=== PATIENT | male | born 1940 | race Two or more races ===

== ENCOUNTER 2024-11-06 04:29 | Inpatient (IN) | payer OTHER, MEDICAID ==
[~2024-11-06] VITALS: Ht 175.3 cm; Wt 67.3 kg
--- NOTE | 2024-11-06 06:34 | ED.PDOC ---
Eye-HPI HPI Comments 84 y/o M, presents to the ED for CC of dizziness. Patient states, he has been experiencing left ear impaction with associated hearing loss x1day; endorses following commencement of symptoms to begin feeling dizzy. Patient comments, "I feel as if the room is spinning around me". Patient further reports, cold symptoms and chills in association. Patient denies nausea, vomiting, diarrhea, fever, or sore-throat. No other symptoms or modifying factors present at this time. Chief Complaint: Dizziness Time Seen by MD: 06:15 Reviewed Notes: Nurses Notes, Medications, Allergies Allergies: Coded Allergies: NO KNOWN ALLERGIES (Unverified , 11/06/24) Information Source: Patient Mode of Arrival: Wheelchair Timing: Days Duration: Since onset Prehospital treatment: None Quality: Hearing loss Lids: Normal Conjunctiva: Normal Cornea: Normal Pupils: Normal EOM: Normal Fundus: Normal Slit lamp exam: Normal Anterior chamber: Normal Mouth: Normal ENT Ear Exam: Normal Nose: Normal Sinuses: Normal Oropharynx: Normal Onset: Spontaneous Throat Exposed to: None History of: None Modifying factors: Nothing Associated signs and symptoms: Chills Past Medical History PAST MEDICAL HISTORY: Denies Surgical History: Denies all surgeries Family History Family History: Unknown Social History Smoker: Non-Smoker Alcohol: Denies ETOH Use Drugs: Denies Drug Use Lives In: Home Constitutional: denies: chills, diaphoresis, fatigue, fever, malaise, sweats, weakness, others EENTM: reports: others (left ear plugged); denies: blurred vision, double vision, ear bleeding, ear discharge, ear drainage, ear pain, ear ringing, eye pain, eye redness, hearing loss, mouth pain, mouth swelling, nasal discharge, nose bleeding, nose congestion, nose pain, photophobia, tearing, throat pain, throat swelling, voice changes Respiratory: denies: cough, hemoptysis, orthopnea, SOB at rest, shortness of breath, SOB with excertion, stridor, wheezing, others Cardiovascular: denies: chest pain, dizzy spells, diaphoresis, Dyspnea on exertion, edema, irregular heart beat, left arm pain, lightheadedness, palpitations, PND, syncope, others Gastrointestinal: denies: abdomen distended, abdominal pain, blood streaked bowels, constipated, diarrhea, dysphagia, difficulty swallowing, hematemesis, melena, nausea, poor appetite, poor fluid intake, rectal bleeding, rectal pain, vomiting, others Genitourinary: denies: burning, dysuria, flank pain, frequency, hematuria, incontinence, penile discharge, penile sore, pain, testicle pain, testicle swelling, urgency, others Neurological: denies: dizziness, fainting, headache, left sided numbness, left sided weakness, numbness, paresthesia, pre-existing deficit, right sided numbne ss, right sided weakness, seizure, speech problems, tingling, tremors, weakness, others Musculoskeletal: denies: back pain, gout, joint pain, joint swelling, muscle pain, muscle stiffness, neck pain, others Integumetry: denies: bruises, change in color, change in hair/nails, dryness, laceration, lesions, lumps, rash, wounds, others Allergic/Immunocompromised: denies: Difficulty Healing, Frequent Infections, Hives, Itching, others Hematologic/Lymphatic: denies: anemia, blood clots, easy bleeding, easy bruising, swollen glands, others Endocrine: denies: excessive hunger, excessive sweating, excessive thirst, excessive urination, flushing, intolerance to cold, intolerance to heat, unexplained weight gain, unexplained weight loss, others Psychiatric: denies: anxiety, bipolar disorder, depression, hopeless, panic disorder, schizophrenia, sleepless, suicidal, others All Other Systems: Reviewed and Negative Physical Exam General Appearance: No Apparent Distress, Normal HEENT: Normal ENT Inspection, Pharynx Normal Neck: Full Range of Motion, Non-Tender, Normal, Normal Inspection Respiratory: Chest Non-Tender, Lungs Clear, No Accessory Muscle Use, No Respiratory Distress, Normal Breath Sounds Cardiovascular: No Edema, No Murmur, No Gallop, Normal Peripheral Pulses, Regular Rate/Rhythm Breast Exam: Deferred Gastrointestinal: No Organomegaly, Non Tender, No Pulsatile Mass, Normal Bowel Sounds, Soft Genitalia: Deferred Pelvic: Deferred Rectal: Deferred Extremities: No calf tenderness, Normal capillary refill, Normal inspection, Normal range of motion, Non-tender, No pedal edema Musculoskeletal : Apperance: Normal Neurologic: Alert, salad maker II-XII nml as Tested, No Motor Deficits, Normal Affect, Normal Mood, No Sensory Deficits Cerebellar Function: Normal Reflexes: Normal Skin: Dry, Normal Color, Warm Lymphatic: No Adenopathy Was a procedure done? Was a procedure done?: No EENT DIFF Eye: N/A Ear: Otitis Media, Sinusitis X-Ray, Labs, Meds, VS Vital Signs Date Time Temp Pulse Resp B/P (MAP) Pulse Ox O2 Delivery O2 Flow Rate FiO2 11/06/24 04:31 99.0 79 14 119/81 97 99.0 Lab Test 11/06/24 06:43 Range/Units White Blood Count 4.9 4.4-10.8 10^3/uL Red Blood Count 4.00 L 4.5-5.90 10^6/uL Hemoglobin 13.1 L 13.5-17.5 g/dL Hematocrit 37.8 L 41.0-53.0 % Mean Corpuscular Volume 94.6 80.0-100.0 fL Mean Corpuscular Hemoglobin 32.7 H 28.0-32.0 pg Mean Corpuscular Hemoglobin Concent 34.6 32.0-36.0 g/dL Red Cell Distribution Width 14.7 H 11.8-14.3 % Platelet Count 150 140-450 10^3/uL Mean Platelet Volume 7.9 6.9-10.8 fL Neutrophils (%) (Auto) 86.8 H 37.0-80.0 % Lymphocytes (%) (Auto) 7.0 L 10.0-50.0 % Monocytes (%) (Auto) 4.7 0.0-12.0 % Eosinophils (%) (Auto) 1.4 0.0-7.0 % Basophils (%) (Auto) 0.1 0.0-2.0 % Neutrophils # (Auto) 4.2 1.6-8.6 10 ^3/uL Lymphocytes # (Auto) 0.3 L 0.4-5.4 10 ^3/uL Monocytes # (Auto) 0.2 0-1.3 10 ^3/uL Eosinophils # (Auto) 0.1 0-0.8 10 ^3/uL Basophils # (Auto) 0 0-0.2 10 ^3/uL Nucleated Red Blood Cells 0.0 % Sodium Level 134 L 136-145 mmol/L Potassium Level 4.3 3.5-5.1 mmol/L Chloride Level 100 98-107 mmol/L Carbon Dioxide Level 27 20-31 mmol/L Anion Gap 7 5-15 Blood Urea Nitrogen 10 9-23 mg/dL Creatinine 0.74 0.700-1.30 mg/dL Glomerular Filtration Rate Calc 90 >90 mL/min BUN/Creatinine Ratio 13.5 10.0-20.0 Serum Glucose 138 H 74-106 mg/dL Calcium Level 9.4 8.7-10.4 mg/dL Troponin I High Sensitivity 258 *H </=54 ng/L Time of 1ST Reevaluation: 06:45 Reevaluation 1ST: Unchanged Patient Education/Counseling: Diagnosis, Treatment Family Education/Counseling: No Family Present SEPSIS Sepsis Screen Date sepsis recognized/suspect: Nov 06, 2024 Time Sepsis recognized/suspect: 435 Recent Procedure: No On Antibiotic Therapy: No Respiratory Rate >20: No Heart Rate >90: No Temp<36 C (96.8 F) or >38.3 C: No SBP <90 or MAP <65 mmHG: No New Acute Mental Status Change: No Is the patient on CPAP, BIPAP,: No Physician Orders Urinalysis (11/06/24 06:26) Troponin-I Hs (11/06/24 07:26) Troponin-I Hs (11/06/24 09:26) Chest Portable (11/06/24 07:28) Head Without Contrast (11/06/24 07:28) Electrocardigram (11/06/24 07:28) Electrocardigram (11/06/24 08:28) Electrocardigram (11/06/24 10:28) Vital Signs Date Time Temp Pulse Resp B/P (MAP) Pulse Ox O2 Delivery O2 Flow Rate FiO2 11/06/24 04:31 99.0 79 14 119/81 97 99.0 Laboratory Tests Test 11/06/24 06:43 White Blood Count 4.9 10^3/uL (4.4-10.8) Departure 1 Departure Time of Disposition: 08:33 (Patient with worsening dizziness found to have elevated tropining. EKG and ct brain and cxr is benign. ) Impression: Primary Impression: Dizziness Additional Impressions: Elevated troponin Weakness Disposition: 09 ADMITTED INPATIENT Admit to: Tele Condition: Guarded Critical Care Note Critical Care Time?: No Stability Stability form required: No Heart Score Heart Score: Heart Score Response (Comments) Value History N/A 0 EKG Repolarization Disturb 1 Age >65 2 Risk Factors >3 or Hx ASHD 2 Troponin >3 x's Normal limit 2 Total 7 I personally scribed for KEN WALKER MD ([email or web address]) on 11/06/24 at 06:34. Electronically submitted by Bella Verde [email or web address]). KEN WALKER MD Nov 06, 2024 06:34
[2024-11-06 06:54] LABS: Hematocrit 37.8 % (41.0-53.0); Hemoglobin 13.1 g/dL (13.5-17.5); Mean Corpuscular Hemoglobin 32.7 pg (28.0-32.0); Mean Corpuscular Volume 94.6 fL (80.0-100.0); Nucleated Red Blood Cells % 0.0 %
[2024-11-06 07:04] LABS: Chloride 100 mmol/L (98-107); Potassium 4.3 mmol/L (3.5-5.1)
[2024-11-06 07:05] LABS: Anion Gap 7 (5-15); Calcium 9.4 mg/dL (8.7-10.4); Carbon Dioxide 27 mmol/L (20-31)
[2024-11-06 07:10] LABS: BUN/Creatinine Ratio 13.5 (10.0-20.0); Blood Urea Nitrogen 10 mg/dL (9-23)
[2024-11-06 07:11] LABS: Glucose 138 mg/dL (74-106); Sodium 134 mmol/L (136-145)
--- NOTE | 2024-11-06 08:08 | DVH ---
EXAM: CT HEAD WITHOUT CONTRAST INDICATION: weakness TECHNIQUE: CT of the head without intravenous contrast. Coronal and sagittal reformatted images are s ubmitted. Radiation Dose : 1. Head: CT Dose: CTDI volume is 52.5 mGy. Dose-length product is 1032.95 mGy*cm The dose indicators for CT are the volume Computed Tomography (CT) Dose Index (CTDIvol) and the Dose Length Product (DLP), and are measured in units of mGy and mGy-cm, respectively. These indicators are not patient dose, but values generated from the CT scanner acquisition factors. The report includes radiation exposure data for exposures received during this examination. All CT scans at this medical facility are performed using dose modulation techniques as appropriate to a performed exam including the following: Automated exposure control was utilized; adjustment of the MA and/or KV according to patient size; and use of iterative reconstruction technique. COMPARISON: None FINDINGS: There is no evidence of acute intracranial hemorrhage, extra-axial collection, mass effect, midline s hift, herniation or hydrocephalus. There is encephalomalacia in the left occipital lobe. The ventricles, sulci and cisterns are age appropriate. The gardiner-white differentiation is intact. The visualized paranasal sinuses and mastoid air cells are clear. No depressed calvarial fracture. The surrounding soft tissues are unremarkable. IMPRESSION: 1. No evidence of acute intracranial abnormality.
--- NOTE | 2024-11-06 08:16 | DVH ---
INDICATION: weakness TECHNIQUE: Frontal view of the chest. COMPARISON: None FINDINGS: Left-sided pacemaker. Median sternotomy. The heart and mediastinal contours are grossly unremarkable. There is no evidence of pleural disease. The lungs are clear. The bony structures of the chest a re intact without fracture. IMPRESSION: 1. No evidence of acute disease.
--- NOTE | 2024-11-06 14:29 | DVHHP2 ---
History of Present Illness Reason for Visit: Dizziness History of Present Illness 84 y/o M, presents to the ED for CC of dizziness. Patient states, he has been experiencing left ear impaction with associated hearing loss x1day; endorses following commencement of symptoms to begin feeling dizzy. Patient comments, "I feel as if the room is spinning around me". Patient further reports, cold symptoms and chills in association. Patient denies nausea, vomiting, diarrhea, fever, or sore-throat. No other symptoms or modifying factors present at this time. He is evaluated in the ER on noted to have elevated troponin. Therefore he has been brought into the hospital for further evaluation of his elevated troponins and dizziness complaints. Past Medical History Denies any high blood pressure diabetes or high cholesterol. Past Surgical History: None Family History: Hypertension Smoke: No ALCOHOL: occassional Lives: with Family Review of Systems Review of Systems No fevers chills or sweats. No headache. Feels fullness in his ear and loss of hearing in the left ear for a day. Other review of systems reviewed normal Allergies: Coded Allergies: NO KNOWN ALLERGIES (Unverified , 11/06/24) Medications Current Medications Medications Dose Ordered Sig/Haider Route Start Time Stop Time Status Last Admin Dose Admin Nitroglycerin 0.4 mg Q5MINP PRN SL 11/06/24 14:30 UNV Morphine Sulfate 2 mg Q30M PRN IV 11/06/24 14:30 UNV Exam Vital Signs Vital Signs Date Time Temp Pulse Resp B/P (MAP) Pulse Ox O2 Delivery O2 Flow Rate FiO2 11/06/24 14:16 77 17 97 Room Air 11/06/24 14:16 97.7 106/68 (81) 97.7 Exam Elderly gentleman alert awake oriented x3. HEENT neck supple no JVD pupils equal round react to light. Heart regular rate and rhythm S1-S2. Lungs fair air movement with a chest normal to expansion no rales wheezes. Abdomen soft nontender positive bowel sounds. Extremities no edema positive distal pedal pulses. Neurologic no focal deficits Labs/Xrays Labs Test 11/06/24 10:54 11/06/24 06:43 Range/Units Troponin I High Sensitivity 238 *H </=54 ng/L White Blood Count 4.9 4.4-10.8 10^3/uL Red Blood Count 4.00 L 4.5-5.90 10^6/uL Hemoglobin 13.1 L 13.5-17.5 g/dL Hematocrit 37.8 L 41.0-53.0 % Mean Corpuscular Volume 94.6 80.0-100.0 fL Mean Corpuscular Hemoglobin 32.7 H 28.0-32.0 pg Mean Corpuscular Hemoglobin Concent 34.6 32.0-36.0 g/dL Red Cell Distribution Width 14.7 H 11.8-14.3 % Platelet Count 150 140-450 10^3/uL Mean Platelet Volume 7.9 6.9-10.8 fL Neutrophils (%) (Auto) 86.8 H 37.0-80.0 % Lymphocytes (%) (Auto) 7.0 L 10.0-50.0 % Monocytes (%) (Auto) 4.7 0.0-12.0 % Eosinophils (%) (Auto) 1.4 0.0-7.0 % Basophils (%) (Auto) 0.1 0.0-2.0 % Neutrophils # (Auto) 4.2 1.6-8.6 10 ^3/uL Lymphocytes # (Auto) 0.3 L 0.4-5.4 10 ^3/uL Monocytes # (Auto) 0.2 0-1.3 10 ^3/uL Eosinophils # (Auto) 0.1 0-0.8 10 ^3/uL Basophils # (Auto) 0 0-0.2 10 ^3/uL Nucleated Red Blood Cells 0.0 % Sodium Level 134 L 136-145 mmol/L Potassium Level 4.3 3.5-5.1 mmol/L Chloride Level 100 98-107 mmol/L Carbon Dioxide Level 27 20-31 mmol/L Anion Gap 7 5-15 Blood Urea Nitrogen 10 9-23 mg/dL Creatinine 0.74 0.700-1.30 mg/dL Glomerular Filtration Rate Calc 90 >90 mL/min BUN/Creatinine Ratio 13.5 10.0-20.0 Serum Glucose 138 H 74-106 mg/dL Calcium Level 9.4 8.7-10.4 mg/dL SEPSIS Sepsis Screen Date sepsis recognized/suspect: Nov 06, 2024 Time Sepsis recognized/suspect: 435 Recent Procedure: No On Antibiotic Therapy: No Respiratory Rate >20: No Heart Rate >90: No Temp<36 C (96.8 F) or >38.3 C: No SBP <90 or MAP <65 mmHG: No New Acute Mental Status Change: No Is the patient on CPAP, BIPAP,: No Physician Orders Chest Portable (11/06/24 07:28) Head Without Contrast (11/06/24 07:28) Electrocardigram (11/06/24 07:28) Electrocardigram (11/06/24 08:28) Electrocardigram (11/06/24 10:28) * Cardiology Consult (11/06/24 11:51) Admit (11/06/24 14:22) Nitroglycerin Sublingual (Ntrostat Subli (11/06/24 14:30) Morphine Sulfate Injection (11/06/24 14:30) Stat Ekg For Chest Pain (11/06/24:) Notify Md Of Changes From Base (11/06/24 14:22) Booster Pump Operator For 24 Hours (11/06/24 14:22) Emergency Dysrhythmia Protocol (11/06/24 14:22) Rhythm Strips Once Every Shift (11/06/24 14:22) Oxygen By Nasal Cannula (11/06/24 14:22) Cardiac Diet-2gna,Lofat,Lochol (11/06/24 Dinner) Pt Request For Service (11/06/24 14:22) Echo 2d Mode Cardiac Dop (11/06/24 14:22) Troponin-I Hs (11/06/24 17:00) Troponin-I Hs (11/06/24 23:00) Troponin-I Hs (11/07/24 05:00) Morphine Sulfate Injection (11/06/24 14:30) Ondansetron Hcl (Zofran) (11/06/24 14:30) Famotidine Tablet (Pepcid Tablet) (11/07/24 10:00) Enoxaparin Sodium (Lovenox) (11/06/24 22:00) Aspirin Enteric Coated Tablet (Ecotrin E (11/07/24 10:00) Atorvastatin (Lipitor) (11/06/24 22:00) Metoprolol Tartrate Tablet (Lopressor Ta (11/06/24 22:00) Vital Signs Date Time Temp Pulse Resp B/P (MAP) Pulse Ox O2 Delivery O2 Flow Rate FiO2 11/06/24 14:16 77 17 97 Room Air 11/06/24 14:16 97.7 77 17 106/68 (81) 97 97.7 Laboratory Tests Test 11/06/24 06:43 White Blood Count 4.9 10^3/uL (4.4-10.8) Assessment/Plan Assessment/Plan Admit him to telemetry floor. Serial cardiac enzymes. 2D echocardiogram. Cardiac consultation. MRA of the brain. Lovenox. DVT GI prophylaxis. Pain and nausea medications. Supportive care and treatment. Further clinical management per clinical course and pending evaluations and studies. Plan discussed with: Other My Orders Orders - RAFA ROBISON MD Procedure Category Date Status Time Admit ADMIT 11/06/24 Transmitted 14:22 Nitroglycerin [facility] 11/06/24 Logged Sublingual (Ntrostat 14:30 Morphine Sulfate PHA 11/06/24 Logged Injection 14:30 Stat Ekg For Chest [facility] 11/06/24 In Process Pain 14:22 Notify Of Changes [facility] 11/06/24 In Process From Base 14:22 Booster Pump Operator For [facility] 11/06/24 In Process 24 Hours 14:22 Emergency Dysrhythmia [facility] 11/06/24 In Process Protocol 14:22 Rhythm Strips Once [facility] 11/06/24 In Process Every Shift 14:22 Oxygen By Nasal RT 11/06/24 Transmitted Cannula 14:22 Cardiac DIET 11/06/24 Transmitted Diet-2gna,Lofat,Lochol Dinner Pt Request For Service PT 11/06/24 Logged 14:22 Echo 2d Mode Cardiac US 11/06/24 Logged DOP 14:22 Troponin-I Hs LAB 11/06/24 Logged 17:00 Troponin-I Hs LAB 11/06/24 Logged 23:00 Troponin-I Hs LAB 11/07/24 Verified 05:00 Morphine Sulfate PHA 11/06/24 Verified Injection 14:30 Ondansetron Hcl PHA 11/06/24 Verified (Zofran) 14:30 Famotidine Tablet PHA 11/07/24 Verified (Pepcid Tablet) 10:00 Enoxaparin Sodium PHA 11/06/24 Verified (Lovenox) 22:00 Aspirin Enteric PHA 11/07/24 Verified Coated Tablet 10:00 Atorvastatin (Lipitor) PHA 11/06/24 Verified 22:00 Metoprolol Tartrate PHA 11/06/24 Verified Tablet (Lopressor Ta 22:00 Problem List: (1) Dizziness (2) Weakness (3) Elevated troponin RAFA ROBISON MD Nov 06, 2024 14:29
[2024-11-06] MEDS ORDERED: ONDANSETRON HCL 4 MG/2 ML VIAL IV PRN (14:30)
[2024-11-06] MEDS ORDERED: MORPHINE SULFATE INJ 2 MG/ml SYRG IV PRN ×2 (14:30)
[2024-11-06] MEDS ORDERED: NITROGLYCERIN 0.4 MG SL TAB SL PRN (14:30)
[2024-11-06 16:32] VITALS: PULSE 83; RESP 12; O2SAT 98
[2024-11-06 19:30] VITALS: PULSE 80; RESP 13; O2SAT 98
[2024-11-06 23:21] VITALS: BP 125/85; PULSE 80; RESP 18; TEMP 98; O2SAT 98
[2024-11-06] MEDS: ATORVASTATIN 20 MG TAB PO SCH (23:39)
[2024-11-06] MEDS: METOPROLOL TARTRATE 25 MG TAB PO SCH (23:41)
[2024-11-06] MEDS: ENOXAPARIN SOD 100 MG/1 ML SYRINGE SC SCH (23:42)
[2024-11-07] MEDS ORDERED: LOSA-533 PO (00:06)
[2024-11-07] MEDS ORDERED: FAMO-12 PO (00:06)
[2024-11-07] MEDS ORDERED: FERR140T5 (00:06)
[2024-11-07] MEDS ORDERED: ZINC220C8 PO (00:06)
[2024-11-07] MEDS ORDERED: DOCU-94 PO (00:06)
[2024-11-07] MEDS ORDERED: METO25TA93 PO (00:06)
[2024-11-07] MEDS ORDERED: WARF4TAB70 PO (00:06)
[2024-11-07 01:00] VITALS: BP 125/85; PULSE 80; RESP 20; TEMP 98; O2SAT 98
[2024-11-07 05:00] VITALS: BP 112/78; PULSE 82; RESP 18; TEMP 97.6; O2SAT 94
[2024-11-07 05:06] LABS: Urine Protein, UAD Negative (Negative)
[2024-11-07 08:00] VITALS: PULSE 81
[2024-11-07 09:00] VITALS: BP 114/78; PULSE 80; RESP 18; TEMP 97.6; O2SAT 97
[2024-11-07 09:40] VITALS: BP_SYST 123; BP_SYST 126; BP_SYST 128; BP_DIAS 81; BP_DIAS 85; BP_DIAS 86
[2024-11-07] MEDS: ASPirin-EC 81 mg tab PO SCH (10:00)
[2024-11-07 12:51] LABS: Magnesium 1.9 mg/dL (1.6-2.6); Triglycerides 54.0 mg/dL (< 150)
[2024-11-07 12:53] LABS: Cholesterol 138.0 mg/dL (< 200); HDL Cholesterol 51.0 mg/dL (40-59)
[2024-11-07 13:00] VITALS: BP_SYST 0; BP_SYST 111; BP_DIAS 81; PULSE 80; RESP 17; TEMP 97.6; O2SAT 98
[2024-11-07] MEDS: FAMOTIDINE 20 MG TAB PO SCH (13:22)
--- NOTE | 2024-11-07 14:26 | DVHINCON2 ---
Date Seen: Nov 07, 2024 Referring Physician MD Nicol Reason for Consultation Near-syncope History of Present Illness This is an 84-year-old male patient who presents to the emergency room with chief complaint of dizziness. The patient reports that two days prior to emergency room arrival he noted a muffled sound in his left ear. He also noted episodes of vertigo which he states that he felt like the room was spinning. He decided to come to the emergency room for further evaluation. Incidentally, troponin levels were noted to be elevated and Cardiology was consulted. He denies any cardiac symptoms. Initial twelve lead electrocardiogram done at time of consultation reveals a paced rhythm, with possible underlying atrial fibrillation. Initial troponin level of 258ng/L with down trend thereafter. Significant past medical history includes congestive heart failure, open heart aortic valve replacement, mitral repair, hypertension, ICD implantation (Biotronik), unspecified atrial fibrillation (on warfarin therapy), and BPH. The patient reports that he recently moved from [place] approximately two months ago and has not established a primary doctor or barkeep in this area. He does report undergoing a coronary angiogram in the past in which no catheter based intervention was necessary. Past Medical History Past medical history reviewed. No other significant than mentioned above. Past Surgical History Open heart aortic valve replacement Mitral valve repair Family History Family history reviewed. Social History Patient has been 80 pack-year history, quit smoking approximately 20 years ago Denies any illicit drug use Denies alcohol use Allergies: Coded Allergies: NO KNOWN ALLERGIES (Unverified , 11/06/24) Home Meds Active Scripts Ofloxacin (Otic) (FLOXIN OTIC) [address], 2 DROP OT QID, #1 EA To apply two drops to the left ear as instructed Prov:RAFA ROBISON MD 11/07/24 Reported Medications Warfarin Sodium (Warfarin Sodium) 1 Mg Tab, 1 MG PO for 30 Days, MG 11/07/24 Famotidine (Famotidine) 20 Mg Tab, 20 MG PO BID for 30 Days, MG 11/07/24 Metoprolol Succinate (Metoprolol Succinate Er) 25 Mg Tab, 25 MG PO DAILY for 30 Days, MG 11/07/24 Losartan Potassium (Losartan Potassium) 25 Mg Tab, 25 MG PO DAILY for 30 Days, MG 11/07/24 Zinc Sulfate (Zinc Sulfate) 220 Mg Cap, 220 MG PO DAILY for 30 Days, MG 11/07/24 Ferrous Sulfate (Iron) 45 Mg Tab 11/07/24 Docusate Sodium (Colace) 100 Mg Cap, 100 MG PO DAILY, CAP 11/07/24 Home Meds Home medications reviewed. Current Medications Current Medications Medications (Trade) Dose Ordered Sig/Haider Route PRN Reason Start Time Stop Time Status Last Admin Nitroglycerin (Ntrostat Sublingual) 0.4 mg Q5MINP PRN SL FOR CHEST PAIN 11/06/24 14:30 Morphine Sulfate 2 mg Q30M PRN IV FOR CHEST PAIN 11/06/24 14:30 Morphine Sulfate 2 mg Q6HPRN PRN IV SEVERE PAIN (7-10 PAIN SCALE) 11/06/24 14:30 Ondansetron HCl (Zofran) 4 mg Q6HPRN PRN IV NAUSEA / VOMITING 11/06/24 14:30 Famotidine (Pepcid Tablet) 20 mg DAILY PO 11/07/24 10:00 11/07/24 13:22 Enoxaparin Sodium (Lovenox) 70 mg Q12HR SC 11/06/24 22:00 11/07/24 13:23 Aspirin (Ecotrin Enteric Coated Tablet) 81 mg DAILY PO 11/07/24 10:00 Atorvastatin Calcium (Lipitor) 40 mg HS PO 11/06/24 22:00 11/06/24 23:39 Metoprolol Tartrate (Lopressor Tablet) 12.5 mg BID PO 11/06/24 22:00 11/06/24 23:41 Review of Systems Constitutional: No symptom reported Ears, Nose, & Throat: Muffled hearing on left ear Eyes: No symptom reported Neurological: Dizziness Pulmonary/Respiratory: No symptoms reported Cardiovascular: No symptom reported Gastrointestinal: No symptom reported Genitourinary: No symptom reported Musculoskeletal: No symptom reported Skin: No symptom reported Psychiatric: No symptom reported Endocrine: No symptom reported Hematologic/Lymphatic: No symptom reported Vital Signs Vital Signs Date Time Temp Pulse Resp B/P (MAP) Pulse Ox O2 Delivery O2 Flow Rate FiO2 11/07/24 13:00 97.6 80 17 111/81 (91) 98 97.6 0/ 11/06/24 23:21 Room Air* 0 21 Physical Exam General Appearance: Cooperative. Well-developed. Well-nourished. No acute distress. Pulmonary/Respiratory: Clear, bilateral breaths sounds. Cardiovascular/Chest: Regular rate and rhythm. Peripheral Pulses: 2+ Radial (R). 2+ Radial (L). 2+ Pedal (R). 2+ Pedal (L) Abdominal Exam: Normal bowel sounds. Ankle Exam: Negative ankle edema Lower extremities: Negative lower extremity edema Neuro/Mental Status: A/OX4, coherent. Thoughts/Psych: Normal thought pattern. Appropriate mood and affect. Good judgment and insight. Appearance: No acute distress. Skin Exam: Normal inspection. Normal color. Warm and dry. Labs/Diagnostic Data Labs Test 11/07/24 06:14 11/07/24 04:37 11/06/24 06:43 Range/Units Hemoglobin A1c 5.7 <5.7 % A1C Magnesium Level 1.9 1.6-2.6 mg/dL Troponin I High Sensitivity 223 *H </=54 ng/L Triglycerides Level 54 < 150 mg/dL Cholesterol Level 138 < 200 mg/dL LDL Cholesterol 84 < 100 mg/dL HDL Cholesterol 51 40-59 mg/dL Thyroid Stimulating Hormone (TSH) 2.01 0.55-4.78 uIU/mL Urine Color Light-yellow Yellow Urine Clarity Clear Clear Urine pH 7.0 5.0-9.0 Urine Specific [place] 1.012 1.001-1.035 Urine Protein Negative Negative Urine Ketones Negative Negative Urine Blood Trace H Negative /uL Urine Nitrite Negative Negative Urine Bilirubin Negative Negative Urine Urobilinogen 2 H Negative mg/dL Urine Leukocyte Esterase Negative Negative /uL Urine RBC 6 0 - 3 /hpf Urine Microscopic WBC < 1 0-3 /HPF Urine Squamous Epithelial Cells None seen <5 /hpf Urine Bacteria None seen None Seen /hpf Urine Glucose Normal Normal mg/dL White Blood Count 4.9 4.4-10.8 10^3/uL Red Blood Count 4.00 L 4.5-5.90 10^6/uL Hemoglobin 13.1 L 13.5-17.5 g/dL Hematocrit 37.8 L 41.0-53.0 % Mean Corpuscular Volume 94.6 80.0-100.0 fL Mean Corpuscular Hemoglobin 32.7 H 28.0-32.0 pg Mean Corpuscular Hemoglobin Concent 34.6 32.0-36.0 g/dL Red Cell Distribution Width 14.7 H 11.8-14.3 % Platelet Count 150 140-450 10^3/uL Mean Platelet Volume 7.9 6.9-10.8 fL Neutrophils (%) (Auto) 86.8 H 37.0-80.0 % Lymphocytes (%) (Auto) 7.0 L 10.0-50.0 % Monocytes (%) (Auto) 4.7 0.0-12.0 % Eosinophils (%) (Auto) 1.4 0.0-7.0 % Basophils (%) (Auto) 0.1 0.0-2.0 % Neutrophils # (Auto) 4.2 1.6-8.6 10 ^3/uL Lymphocytes # (Auto) 0.3 L 0.4-5.4 10 ^3/uL Monocytes # (Auto) 0.2 0-1.3 10 ^3/uL Eosinophils # (Auto) 0.1 0-0.8 10 ^3/uL Basophils # (Auto) 0 0-0.2 10 ^3/uL Nucleated Red Blood Cells 0.0 % Sodium Level 134 L 136-145 mmol/L Potassium Level 4.3 3.5-5.1 mmol/L Chloride Level 100 98-107 mmol/L Carbon Dioxide Level 27 20-31 mmol/L Anion Gap 7 5-15 Blood Urea Nitrogen 10 9-23 mg/dL Creatinine 0.74 0.700-1.30 mg/dL Glomerular Filtration Rate Calc 90 >90 mL/min BUN/Creatinine Ratio 13.5 10.0-20.0 Serum Glucose 138 H 74-106 mg/dL Calcium Level 9.4 8.7-10.4 mg/dL Assessment NSTEMI, likely type 2 Chronic compensated HFrEF, NYHA class II Open heart aortic valve replacement Mitral valve repair Unspecified atrial fibrillation (on warfarin therapy) Presence of ICD ([employer]) Hypertension BPH Plan/Recommendation We will continue with the following plan/recommendations (Dr. Gray): Patient seen and examined at bedside with . A transthoracic echocardiogram was done to evaluate cardiac function. Preliminary EF per approximately 35%. We will initiate guideline directed medical therapy for CHF as tolerated. Patient had his ICD interrogated while in the emergency room. Spoke with the [employer] territory representative who did the interrogation: No significant events noted, and patient does in fact have underlying atrial fibrillation. The should continue with his warfarin therapy. There is no further inpatient cardiac workup indicated at this time. The patient we will need to establish a barkeep in the outpatient setting and follow up within 1-2 weeks post discharge. Rest of care per primary team. Thank you for allowing us to care for this patient. Please call with any questions or concerns. Critical care time spent: 44 minutes This medical document was created using an electronic medical record system with voice recognition software and computerized dictation system. Although this document has been carefully reviewed, there might still be some phonetic and typographical errors. Occasional wrong-word or ``sound-alike substitutions may have occurred due to the inherent limitations of voice recognition software. These areas are purely typographical due to imperfections of the software programs and do not reflect any compromise in the patient's medical care. Please read the chart carefully and recognize, using context, where these substitutions have occurred. Plan discussed with: Patient NYHA Physical activity limitations: NA Date of Service: Nov 07, 2024 Billing Provider: JENNA MEMBRENO Cardiology Common Codes: 64493-AWJRZSB INP/OBS CARE (High) Cardiology Consultation Codes: 60794-[id number] CONSULT <45MIN JENNA MEMBRENO Nov 07, 2024 14:26
--- NOTE | 2024-11-07 14:47 | DVHDS2 ---
Discharge Summary Date of Admission Nov 06, 2024 at 14:22 Date of Discharge: Nov 07, 2024 Labs/Diagnostic Data: Laboratory Results Test 11/07/24 06:14 11/07/24 04:37 11/06/24 06:43 Hemoglobin A1c 5.7 % A1C (<5.7) Magnesium Level 1.9 mg/dL (1.6-2.6) Troponin I High Sensitivity 223 ng/L (</=54) Triglycerides Level 54 mg/dL (< 150) Cholesterol Level 138 mg/dL (< 200) LDL Cholesterol 84 mg/dL (< 100) HDL Cholesterol 51 mg/dL (40-59) Thyroid Stimulating Hormone (TSH) 2.01 uIU/mL (0.55-4.78) Urine Color Light-yellow (Yellow) Urine Clarity Clear (Clear) Urine pH 7.0 (5.0-9.0) Urine Specific [place] 1.012 (1.001-1.035) Urine Protein Negative (Negative) Urine Ketones Negative (Negative) Urine Blood Trace /uL (Negative) Urine Nitrite Negative (Negative) Urine Bilirubin Negative (Negative) Urine Urobilinogen 2 mg/dL (Negative) Urine Leukocyte Esterase Negative /uL (Negative) Urine RBC 6 /hpf (0 - 3) Urine Microscopic WBC < 1 /HPF (0-3) Urine Squamous Epithelial Cells None seen /hpf (<5) Urine Bacteria None seen /hpf (None Seen) Urine Glucose Normal mg/dL (Normal) White Blood Count 4.9 10^3/uL (4.4-10.8) Red Blood Count 4.00 10^6/uL (4.5-5.90) Hemoglobin 13.1 g/dL (13.5-17.5) Hematocrit 37.8 % (41.0-53.0) Mean Corpuscular Volume 94.6 fL (80.0-100.0) Mean Corpuscular Hemoglobin 32.7 pg (28.0-32.0) Mean Corpuscular Hemoglobin Concent 34.6 g/dL (32.0-36.0) Red Cell Distribution Width 14.7 % (11.8-14.3) Platelet Count 150 10^3/uL (140-450) Mean Platelet Volume 7.9 fL (6.9-10.8) Neutrophils (%) (Auto) 86.8 % (37.0-80.0) Lymphocytes (%) (Auto) 7.0 % (10.0-50.0) Monocytes (%) (Auto) 4.7 % (0.0-12.0) Eosinophils (%) (Auto) 1.4 % (0.0-7.0) Basophils (%) (Auto) 0.1 % (0.0-2.0) Neutrophils # (Auto) 4.2 10 ^3/uL (1.6-8.6) Lymphocytes # (Auto) 0.3 10 ^3/uL (0.4-5.4) Monocytes # (Auto) 0.2 10 ^3/uL (0-1.3) Eosinophils # (Auto) 0.1 10 ^3/uL (0-0.8) Basophils # (Auto) 0 10 ^3/uL (0-0.2) Nucleated Red Blood Cells 0.0 % Sodium Level 134 mmol/L (136-145) Potassium Level 4.3 mmol/L (3.5-5.1) Chloride Level 100 mmol/L (98-107) Carbon Dioxide Level 27 mmol/L (20-31) Anion Gap 7 (5-15) Blood Urea Nitrogen 10 mg/dL (9-23) Creatinine 0.74 mg/dL (0.700-1.30) Glomerular Filtration Rate Calc 90 mL/min (>90) BUN/Creatinine Ratio 13.5 (10.0-20.0) Serum Glucose 138 mg/dL (74-106) Calcium Level 9.4 mg/dL (8.7-10.4) Other Laboratory Tests 11/06/24 06:43 Brief Hx & Hospital Course: This is an 84-year-old male patient who presents to the emergency room with chief complaint of dizziness. The patient reports that two days prior to emergency room arrival he noted a muffled hearing sound in his left ear. He also noted episodes of vertigo which he states that he felt like the room was spinning. He decided to come to the emergency room for further evaluation. Incidentally, troponin levels were noted to be elevated and Cardiology was consulted. He denies any cardiac symptoms. Initial twelve lead electrocardiogram done at time of consultation reveals a paced rhythm, with possible underlying atrial fibrillation. Initial troponin level of 258ng/L with down trend thereafter. Significant past medical history includes congestive heart failure, open heart aortic valve replacement, mitral repair, hypertension, ICD implantation (Biotronik), possible atrial fibrillation (on warfarin therapy), and BPH. The patient reports that he recently moved from [place] approximately two months ago and has not established a primary doctor or salesperson [employer] in this area. He does report undergoing a coronary angiogram in the past in which no catheter based intervention was necessary. He is admitted and evaluated by salesperson [employer] felt his elevated troponins due to demand ischemia type [address]-elevation MA. Patient is otherwise clinically stable in the hospital. Left ear is examined with the otoscope noted to have some fluid in the middle ear. Otherwise he has also little bit of wax. Therefore he is prescribed ear drops. Otherwise patient is clinically stable in the hospital felt can be safely discharged home. He is advised to follow up with the primary care physician and have a re-evaluation of his ear and referral to salesperson [employer] should he have any further symptoms. Patient verbalized understanding of this, verbalized understanding his hospital diagnosis, treatment she received, discharge medications, discharge instructions and agree with the follow up plan of care as outlined. Condition at Discharge: Stable Final Diagnosis/Problems List NSTEMI, likely type 2 Open heart aortic valve replacement Mitral valve repair Questionable atrial fibrillation (on warfarin therapy) Presence of ICD (Biotronik) Hypertension BPH Discharge Disposition: Home Discharge Instruct/Medications Diet: Consistent carbohydrate, Cardiac 2g Na,low cholest Activity: No Restrictions, As Tolerated Follow Up/Referral: Your primary care physician next week for left ear exam for wax/fluid in the EAR. Directory Carrier for further management of her dizziness Medications: As prescribed and home medications as you were taking Scheduled Docusate Sodium (Colace), 100 MG PO DAILY, (Reported) Famotidine (Famotidine), 20 MG PO BID, (Reported) Losartan Potassium (Losartan Potassium), 25 MG PO DAILY, (Reported) Metoprolol Succinate (Metoprolol Succinate Er), 25 MG PO DAILY, (Reported) Zinc Sulfate (Zinc Sulfate), 220 MG PO DAILY, (Reported) Miscellaneous Medications Ferrous Sulfate (Iron), (Reported) Warfarin Sodium (Warfarin Sodium), 1 MG PO, (Reported) Discharge Statement: "Patient was advised to return to the ER or call 911 if any headaches, dizziness, shortness of breath, chest pain, abdominal pain, bleeding, fevers, or worsening of medical condition. Patient was counseled about treatment plan, medications, possible side effects, patientverbalized understanding. All questions were answered to the best of my ability. This discharge took greater then 30 minutes in planning, reviewing documentation, counseling the patient, and discussing with other team members." ASSESSMENT ASSESSMENT Assessment NSTEMI, likely type 2 Open heart aortic valve replacement Mitral valve repair Questionable atrial fibrillation (on warfarin therapy) Presence of ICD (Biotronik) Hypertension BPH RAFA ROBISON MD Nov 07, 2024 14:47
[2024-11-07] MEDS ORDERED: OFL50TS OT (14:50)
--- NOTE | 2024-11-08 08:15 | ECG ---
[facility] Test Date: 2024-11-07 Test Time: 12:22:27 Pat Name: TESSA MORROW Department: Respiratoy Room: 0251T A Gender: M [employer]: DORA : 1940 Requested By: JENNA MEMBRENO Order Number: [id number] Reading MD: Miguelangel Pendleton Measurements Intervals [place] Rate: 80 P: 0 PA: 0 QRS: 253 QRSD: 177 T: 80 QT: 482 QTc: 557 Interpretive Statements Afib/flutter and ventricular-paced rhythm No further analysis attempted due to paced rhythm Electronically Signed On 11-12-2024 22:13:39 PDT by Miguelangel Pendleton Please click the below link to view image of tracing.
--- NOTE | 2024-11-08 13:35 | DVHSR ---
APPROVED REPORT EXAM: Two-dimensional and M-mode echocardiogram with Doppler and color Doppler. Blood Pressure: 112/78 mmHg INDICATION Dizziness and Vertigo Surgery/Intervention Valve Replacement: Type: AV RISK FACTORS Height: 5'9", Weight: 148 DIMENSIONS LVDd5.8 (3.8-5.7cm)LA (2D)6.4 (1.9-4.0cm)Aortic Root (2.0-3.7cm) LVDs4.8 (2.5-4.0cm)LA (MM) (1.9-4.0cm)Aortic Cusp Exc (1.5-2.0cm) EF (%) 34.0 (55-70%)Rt. Atrium5.6 (1.9-4.0cm)Asc. Aorta3.7 cm IVSd1.0 (0.7-1.1cm)RV (D) (1.8-2.4cm) PWd0.9 (0.7-1.1cm) Mitral Valve MitralMitral Stenosis E wave1.66m/sMV Mean GR.5mmHg A wavem/sMV Peak GR.13mmHg E/A ratio0.02D MVAcm2 DECEL TimemsPRESS 1/2 [id number] IVRTmsDop MVA2.35cm2 Aortic Valve Aortic ValveAortic Stenosis V10.55m/Ashley Mean GR.7mmHg V21.71m/Ashley Peak GR.12mmHg LVOT Diameter3.2 (1.8-2.4cm)Doppler AVA2.59cm2 2D AVA2.21cm2 Pulmonic Valve V20.65m/s Tricuspid Valve TR Velocity2.25m/s [id number] Conclusion lvef 30% global severe dysrfunction RV dysfunction biatrial enlargement s/p AVR, normal seating, no sig AI posterior leaflet in MV is stenotic, mean gradient of 4 mmhg, mild mitral regurg mild to moderate tricuspdi regurg pacing lead across RV trivial pericardial effusion noted
== END 2024-11-07 17:04 | disposition home or self-care (01) | DRG 281 ==
LOC: ER 04:29 → OVERFLOW 14:22 → TELE-EAST 23:16
PROVIDERS: ADMIT Hospitalist; ATTEND Hospitalist
PROC: 4B02XTZ Measurement of Cardiac Defibrillator, External Approach (ICD-10-PCS; principal; 2024-11-07)
DX: I48.91 Unspecified atrial fibrillation (principal); I50.22 Chronic systolic (congestive) heart failure; I21.A1 Myocardial infarction type 2; I11.0 Hypertensive heart disease with heart failure; N40.0 Benign prostatic hyperplasia without lower urinary tract symptoms; Z95.2 Presence of prosthetic heart valve; Z82.49 Family history of ischemic heart disease and other diseases of the circulatory system; Z79.01 Long term (current) use of anticoagulants
CPT/HCPCS: 36415; 70450; 71045; 80048; 80061; 81001; 83036; 83735; 84443; 84484; 85025; 93005; 93306; 97163; G0378